=== PATIENT | female | born 1940 | race Caucasian/White ===

== ENCOUNTER 2017-06-27 17:50 | Emergency (ER) | payer OTHER ==
[~2017-06-27] VITALS: Ht 169.5 cm; Wt 77.3 kg
[2017-06-27 17:53] VITALS: Ht 169.5 cm; Wt 77.3 kg
[2017-06-27] MEDS ORDERED: HYDROCODONE/APAP (5/325) TAB PO ONE ×2 (19:00→20:30)
--- NOTE | 2017-06-27 19:15 | ERD ---
ER Documentation Chief Complaint Chief Complaint RIGHT HIP PAIN HPI 37-year-old female presents 3 hours status post a [place] [employer] Denies loss of consciousness. States that her right hip hurts as well as her right wrist and right shoulder. Impact was to the right hand. Denies numbness, tingling, loss of range of motion. Able to ambulate although secondary to pain. Has not taken any medications to relieve the symptoms. No medical conditions. He takes no medications. Patient has no other complaints and describes no other associated manifestations. Nursing notes have been reviewed and are consistent with history given. ROS All systems reviewed and are negative except as per history of present illness. Medications Home Meds Active Scripts Hydrocodone/Acetaminophen ([place] 5-325 Tablet) 1 Each Tablet, 1 TAB PO Q6H Y for PAIN, #20 TAB Prov:CARLOS A HUNTER PA-C 06/27/17 PMhx/Soc History of Surgery: No Anesthesia Reaction: No Hx Neurological Disorder: No Hx Respiratory Disorders: No Hx Cardiac Disorders: No Hx Psychiatric Problems: No Hx Miscellaneous Medical Probl: Yes (celiac disease) Hx Alcohol Use: No Hx Substance Use: No Hx Tobacco Use: No Smoking Status: Never smoker Physical Exam Vitals Vital Signs Date Time Temp Pulse Resp B/P Pulse Ox O2 Delivery O2 Flow Rate FiO2 06/27/17 17:53 98.9 90 18 172/99 96 Physical Exam Const: Well-appearing happy 77-year-old female no acute distress Ext: No cyanosis, or edema. Moderate tenderness palpation over the right hip. Full range of motion in the wrist and right shoulder. No bony abnormalities. No rotation of the hip. No shortening. Skin: No petechiae or rashes Head: Atraumatic Eyes: Normal Conjunctiva. PERRLA, EOMI. Neck: Full range of motion..~ No meningismus. Resp: Equal chest expansion. No tripoding or use of accessory muscles. Cardio: Regular rate and rhythm. No obvious murmurs. Cap refill less than 2 seconds. Pulses 2+ bilaterally. Back: No midline or flank tenderness Neur: Awake and alert. Sensation intact. Psych: Normal Mood and Affect Results 24 hrs Current Medications Medications (Trade) Dose Ordered Sig/Norah Route PRN Reason Start Time Stop Time Status Last Admin Dose Admin Acetaminophen/ Hydrocodone Bitart ([place] (5/325)) 1 tab ONCE ONCE PO 06/27/17 19:00 06/27/17 19:01 DC 06/27/17 18:55 Acetaminophen/ Hydrocodone Bitart ([place] (5/325)) 1 tab ONCE ONCE PO 06/27/17 20:30 06/27/17 20:30 DC Ondansetron HCl (Zofran Odt) 4 mg ONCE STAT ODT 06/27/17 20:18 06/27/17 20:19 DC Procedures/MDM Otherwise healthy 77-year-old female presents 3 hours status post [facility] No rotation or shortening of the hip. Tender to palpation over the right hip. 5/25 mg [place] p.o. was given in the ED with adequate relief of symptoms. X-rays of the affected sites were obtained, read by the radiologist, given the following impressions: Unremarkable. During ED stay patient had a period of lightheadedness and flushing lights. Thus EKG, CT and Accu-Chek were obtained. EKG was read by me as normal sinus rhythm, no ST wave elevation or depression, no T-wave abnormalities, normal axis , and good baseline. Accu-Chek was WNL. CT was read by the radiologist given the following impression: 1. Minimal age related cerebral volume loss. Minimal small vessel ischemic changes. 2. Moderate atherosclerotic vascular calcification. 3. Chronic sinus disease change, including foamy debris in the right frontal sinus, which may reflect acute sinusitis involvement. At this time I have no suspicion for acute intracranial pathology, neurovascular compromise, or acute bony pathology. Most likely diagnosis is contusion of the right hip. I have spoke with the patient regarding their condition and future management. They have verbally responded that they understand their status and treatment plan. The patients vitals are stable, and their current condition is appropriate for discharge. The patient will be given discharge instructions with return precautions. Discharge medications: [place] 5/325 mg 20 tabs Departure Diagnosis: Primary Impression: Hip injury Encounter type: initial encounter Laterality: right Qualified Code: S79.911A - Injury of right hip, initial encounter Additional Impression: Hip pain Laterality: right Qualified Code: M25.551 - Pain of right hip joint Condition: Stable Additional Instructions: Follow up with your PCP within the next 1-3 days for a more thorough evaluation and a possible referral to a specialist. Return the the emergency department immediately if symptoms worsen or change. If you have any questions regarding medications, ask your pharmacist or us before you leave. If any adverse reactions occur while taking your medications, discontinue the treatment and return to the emergency department immediately. Take your medications as directed, and complete the entire course of treatment. CARLOS A HUNTER PA-C Jun 27, 2017 19:15
--- NOTE | 2017-06-27 19:32 | RADRPT ---
PROCEDURE: XR, right shoulder CLINICAL INDICATION: Pain. TECHNIQUE: Three views of the shoulder were obtained. COMPARISON: None available FINDINGS: The glenohumeral joint is normal. The acromioclavicular joint is also normal. No acute fracture, d islocation or destructive lesion. The visualized ribs and clavicle are unremarkable. The surroundi ng soft tissues are also unremarkable. IMPRESSION: 1. Unremarkable shoulder x-ray series. RPTAT: GG .Earl Marie MD, Date Time Electronically viewed and signed by .Earl Marie MD, on 06/27/2017 19:32 .Y/
--- NOTE | 2017-06-27 20:04 | RADRPT ---
PROCEDURE: XR, right hip. CLINICAL INDICATION: Pain/fall. TECHNIQUE: AP and lateral flag views of the hip were available to review. COMPARISON: None available. FINDINGS: No acute fracture, dislocation or destructive lesion. The hip joint is normal. The bony mineraliza tion is within normal. The surrounding soft tissues unremarkable. IMPRESSION: 1. Unremarkable hip x-rays series. RPTAT: GG .Earl Marie MD, MD Date Time Electronically viewed and signed by .Earl Marie MD, on 06/27/2017 20:04 .Y/
--- NOTE | 2017-06-27 20:09 | RADRPT ---
PROCEDURE: XR, right wrist. CLINICAL INDICATION: Pain TECHNIQUE: AP, lateral and oblique views of the wrist were performed. COMPARISON: None available. FINDINGS: There is severe degenerative osteoarthritis of the first carpometacarpal joint. There is moderate de generative osteoarthritis of the trapezium/scaphoid joint. No acute fracture, dislocation, para-articular bony erosion or subluxation is seen. The soft tissue s appear intact. There is no radiopaque foreign body. IMPRESSION: 1. Severe degenerative osteoarthritis of the first carpometacarpal joint. Moderate degenerative os teoarthritis of the trapezium/scaphoid joint. 2. No fracture. RPTAT: GG .Earl Marie MD, Date Time Electronically viewed and signed by .Earl Marie MD, on 06/27/2017 20:09 .Y/
[2017-06-27] MEDS ORDERED: ONDANSETRON (ODT) 4 MG TAB ODT STA (20:18)
--- NOTE | 2017-06-27 22:08 | RADRPT ---
PROCEDURE: CT Head without contrast. CLINICAL INDICATION: Trauma, pain TECHNIQUE: Continuous axial CT images were obtained from the base of skull to the vertex. No cont rast was administered. The calculated radiation dose measures 720 mGy centimeters. The CTDI measures 45 mGy One or more of the following dose reduction techniques were used: Automated exposure control. Adjustment of the mA and/or kV according to patient size. Use of iterative reconstruction technique. DICOM images are available. COMPARISON: No prior studies are available for comparison. FINDINGS: There is minimal diffuse cerebral volume loss. The ventricles are symmetric and normal in configura tion. There is no mass effect or midline shift. There is no abnormal intra-axial or extra-axial fl uid collection. There is no evidence of intracranial hemorrhage. There are scattered areas of decreased attenuation in the supratentorial white matter, consistent wi th minimal small vessel ischemic changes. There is moderate atherosclerotic vascular calcification. The bony calvarium is intact. The orbital soft tissue contents are unremarkable. There is mucosal thickening in the paranasal sinuses, and foamy debris in the right frontal sinus.. IMPRESSION: 1. Minimal age related cerebral volume loss. Minimal small vessel ischemic changes. 2. Moderate atherosclerotic vascular calcification. 3. Chronic sinus disease change, including foamy debris in the right frontal sinus, which may refle ct acute sinusitis involvement. RPTAT: HBST .Mickey Constantino MD, Date Time Electronically viewed and signed by .Mickey Constantino MD, MD on 06/27/2017 22:08 .T/
[2017-06-27] MEDS ORDERED: HYDR-906 PO (22:34)
== END 2017-06-27 22:57 | disposition home or self-care (01) ==
LOC: FTE 17:50
DX: S79.911A Unspecified injury of right hip, initial encounter (principal); R93.0 Abnormal findings on diagnostic imaging of skull and head, not elsewhere classified; R06.02 Shortness of breath; W01.0XXA Fall on same level from slipping, tripping and stumbling without subsequent striking against object, initial encounter; Y92.512 Supermarket, store or market as the place of occurrence of the external cause
CPT/HCPCS: 70450; 73510; 93005